=== PATIENT | female | born 1975 | race Native Hawaiian/Other Pacific Islander ===

== ENCOUNTER 2019-06-17 12:29 | Emergency (ER) | payer OTHER ==
[~2019-06-17] VITALS: Ht 149.9 cm; Wt 89.4 kg
[2019-06-17 13:01] LABS: PLATELET COUNT 378 K/uL (152-353); POTASSIUM 3.8 mmol/L (3.6-5.2); SODIUM 139 mmol/L (136-145)
[2019-06-17 13:57] VITALS: BP 124/86; TEMP 98.4
== END 2019-06-17 13:57 | disposition home or self-care (01) ==
LOC: ED 12:29
PROVIDERS: Emergency Medicine
DX: J06.9 Acute upper respiratory infection, unspecified (principal)
CPT/HCPCS: 36415; 80053; 83735; 83880; 84484; 85027; 85379; 93005; 99283